=== PATIENT | male | born 1985 | race Two or more races ===

== ENCOUNTER 2024-08-06 16:37 | Emergency (ER) | payer MEDICAID ==
[~2024-08-06] VITALS: Ht 193 cm; Wt 120.0 kg
--- NOTE | 2024-08-06 17:30 | DVH ---
CHEST RADIOGRAPH Indication: CP Technique: Single frontal view of the chest was obtained Comparison: None FINDINGS: Lines and Tubes: Sternal wire sutures in place Lungs: Bilateral perihilar peribronchial thickening. Findings may represent bronchitis. Pleura: No effusion. No pneumothorax. Cardiomediastinal contours: Unremarkable Bones: No acute osseous abnormality. IMPRESSION: 1. Findings suggest bronchitis. HS:Y
[2024-08-06 17:56] LABS: Basophils # (auto) 0.1 10 ^3/uL (0-0.2); Eosinophils # (auto) 0.3 10 ^3/uL (0-0.8); Eosinophils % (auto) 4.1 % (0.0-7.0); Hematocrit 43.1 % (41.0-53.0); Hemoglobin 14.1 g/dL (13.5-17.5); Lymphocytes # (auto) 2.2 10 ^3/uL (0.4-5.4); Lymphocytes % (auto) 34.4 % (10.0-50.0); Mean Corpuscular Hemoglobin 29.2 pg (28.0-32.0); Mean Corpuscular Hgb Conc. 32.6 g/dL (32.0-36.0); Mean Corpuscular Volume 89.5 fL (80.0-100.0); Monocytes # (auto) 0.6 10 ^3/uL (0-1.3); Monocytes % (auto) 9.4 % (0.0-12.0); Neutrophils # (auto) 3.3 10 ^3/uL (1.6-8.6); Neutrophils % (auto) 51.1 % (37.0-80.0); Nucleated Red Blood Cells % 0.1 %; Platelet Count (auto) 165 10^3/uL (140-450); Red Blood Cells 4.82 10^6/uL (4.5-5.90); Red Cell Distribution Width 18.2 % (11.8-14.3); White Blood Cell 6.5 10^3/uL (4.4-10.8)
[2024-08-06 18:03] VITALS: BP 111/64
[2024-08-06 18:08] LABS: Sodium 143 mmol/L (136-145)
[2024-08-06 18:09] LABS: Anion Gap 9 (5-15); Carbon Dioxide 27 mmol/L (20-31)
[2024-08-06 18:10] LABS: Calcium 9.5 mg/dL (8.7-10.4)
[2024-08-06 18:14] LABS: Glucose 78 mg/dL (74-106)
[2024-08-06 18:15] VITALS: PULSE 53; RESP 16; O2SAT 94
[2024-08-06 18:15] LABS: BUN/Creatinine Ratio 18.3 (10.0-20.0)
[2024-08-06] MEDS: SODIUM CHLORIDE 0.9% 1,000 ML IVB ONE (18:18)
[2024-08-06] MEDS: ASPirin 81 mg TAB PO ONE (18:19)
[2024-08-06 18:20] LABS: Blood Urea Nitrogen 26 mg/dL (9-23)
[2024-08-06 18:21] LABS: Chloride 107 mmol/L (98-107)
--- NOTE | 2024-08-06 18:30 | ED.PDOC ---
HPI Comments 39-year-old male who comes in with chief complaint of dizziness and possible dehydration with chest pain and shortness for breath. The patient was started hiking at approximately 8:00 a.m. in the morning. At approximately 3:00 a.m. the patient became very dizzy and had some substernal chest pain. It was stabbing in nature and radiated to both arms. The patient then developed some shortness a breath. 911 was called in the helicopter came and picked up patient. There was no vomiting or nausea at that time. At the time the patient was blood pressure was within normal limits. The paramedics checked his blood sugar and was 103. Upon arrival, the patient was states that the chest pain is a 3/10. It still is nonradiating. Chief Complaint: Shortness of Breath Time Seen by MD: 16:41 Primary Care Provider: TAZ Reviewed Notes: Nurses Notes, Tomb Maker Helper Notes, Medications, Allergies (No allergies to medications) Allergies: Coded Allergies: NO KNOWN ALLERGIES (Unverified , 08/06/24) Information Source: Patient, Emergency Med Personnel Mode of Arrival: EMS Severity: Moderate Timing: Hours Duration: Since onset Prehospital treatment: 12 Lead EKG, Accucheck (103), [employer], IVF Location: Substernal Radiation: No Radiation Quality: Stabbing Onset: With Light Exertion Cardiac Risk Factors: None PE Risk Factors: None History of: Similar pain in past Modifying Factors: Exertion Associated Signs and Symptoms: SOB, Other (Dizziness) Constitutional: reports: weakness; denies: chills, diaphoresis, fatigue, fever, malaise, sweats, others EENTM: denies: blurred vision, double vision, ear bleeding, ear discharge, ear drainage, ear pain, ear ringing, eye pain, eye redness, hearing loss, mouth pain, mouth swelling, nasal discharge, nose bleeding, nose congestion, nose pain, photophobia, tearing, throat pain, throat swelling, voice changes, others Respiratory: reports: shortness of breath; denies: cough, hemoptysis, orthopnea, SOB at rest, SOB with excertion, stridor, wheezing, others Cardiovascular: reports: chest pain; denies: dizzy spells, diaphoresis, Dyspnea on exertion, edema, irregular heart beat, left arm pain, lightheadedness, palpitations, PND, syncope, others Gastrointestinal: denies: abdomen distended, abdominal pain, blood streaked bowels, constipated, diarrhea, dysphagia, difficulty swallowing, hematemesis, melena, nausea, poor appetite, poor fluid intake, rectal bleeding, rectal pain, vomiting, others Genitourinary: denies: burning, dysuria, flank pain, frequency, hematuria, inc ontinence, penile discharge, penile sore, pain, testicle pain, testicle swelling, urgency, others Neurological: reports: dizziness; denies: fainting, headache, left sided numbness, left sided weakness, numbness, paresthesia, pre-existing deficit, right sided numbness, right sided weakness, seizure, speech problems, tingling, tremors, weakness, others Musculoskeletal: denies: back pain, gout, joint pain, joint swelling, muscle pain, muscle stiffness, neck pain, others Integumetry: denies: bruises, change in color, change in hair/nails, dryness, laceration, lesions, lumps, rash, wounds, others Allergic/Immunocompromised: denies: Difficulty Healing, Frequent Infections, Hives, Itching, others Hematologic/Lymphatic: denies: anemia, blood clots, easy bleeding, easy bruising, swollen glands, others Endocrine: denies: excessive hunger, excessive sweating, excessive thirst, excessive urination, flushing, intolerance to cold, intolerance to heat, unexplained weight gain, unexplained weight loss, others Psychiatric: denies: anxiety, bipolar disorder, depression, hopeless, panic disorder, schizophrenia, sleepless, suicidal, others Physical Exam General Appearance: Moderate Distress, Obese HEENT: Normal ENT Inspection, Pharynx Normal, TMs Normal Neck: Full Range of Motion, Non-Tender, Normal, Normal Inspection Respiratory: Chest Non-Tender, Lungs Clear, No Accessory Muscle Use, No Respiratory Distress, Normal Breath Sounds Cardiovascular: No Edema, No JVD, No Murmur, No Gallop, Normal Peripheral Pulses, Regular Rate/Rhythm, Other (Pacemaker in check) Breast Exam: Deferred Gastrointestinal: No Organomegaly, Non Tender, No Pulsatile Mass, Normal Bowel Sounds, Soft Genitalia: Deferred Pelvic: Deferred Rectal: Deferred Extremities: No calf tenderness, Normal capillary refill, Normal inspection, Normal range of motion, Non-tender, No pedal edema Musculoskeletal : Apperance: Normal Neurologic: Alert, general helper II-XII nml as Tested, No Motor Deficits, Normal Affect, Normal Mood, No Sensory Deficits Cerebellar Function: Normal Reflexes: Normal Skin: Dry, Normal Color, Warm Lymphatic: No Adenopathy EKG EKG : Pulse Rate (adult): 50 Cardiac Rhythm: Paced Block: None ST: Nonsp Was a procedure done? Was a procedure done?: No CP Differential Dx Differential Diagnosis: Angina, IN, Pulmonary Embolus Differential Diagnosis: CHF Differential Diagnosis: Pericarditis X-Ray, Labs, Meds, VS Vital Signs Date Time Temp Pulse Resp B/P (MAP) Pulse Ox O2 Delivery O2 Flow Rate FiO2 08/06/24 16:51 50 08/06/24 16:37 98.7 50 18 118/88 (98) 95 Lab Test 08/06/24 17:31 Range/Units White Blood Count 6.5 4.4-10.8 10^3/uL Red Blood Count 4.82 4.5-5.90 10^6/uL Hemoglobin 14.1 13.5-17.5 g/dL Hematocrit 43.1 41.0-53.0 % Mean Corpuscular Volume 89.5 80.0-100.0 fL Mean Corpuscular Hemoglobin 29.2 28.0-32.0 pg Mean Corpuscular Hemoglobin Concent 32.6 32.0-36.0 g/dL Red Cell Distribution Width 18.2 H 11.8-14.3 % Platelet Count 165 140-450 10^3/uL Mean Platelet Volume 7.7 6.9-10.8 fL Neutrophils (%) (Auto) 51.1 37.0-80.0 % Lymphocytes (%) (Auto) 34.4 10.0-50.0 % Monocytes (%) (Auto) 9.4 0.0-12.0 % Eosinophils (%) (Auto) 4.1 0.0-7.0 % Basophils (%) (Auto) 1.0 0.0-2.0 % Neutrophils # (Auto) 3.3 1.6-8.6 10 ^3/uL Lymphocytes # (Auto) 2.2 0.4-5.4 10 ^3/uL Monocytes # (Auto) 0.6 0-1.3 10 ^3/uL Eosinophils # (Auto) 0.3 0-0.8 10 ^3/uL Basophils # (Auto) 0.1 0-0.2 10 ^3/uL Nucleated Red Blood Cells 0.1 % Sodium Level 143 136-145 mmol/L Potassium Level 4.0 3.5-5.1 mmol/L Chloride Level 107 98-107 mmol/L Carbon Dioxide Level 27 20-31 mmol/L Anion Gap 9 5-15 Blood Urea Nitrogen 26 H 9-23 mg/dL Creatinine 1.42 H 0.700-1.30 mg/dL Glomerular Filtration Rate Calc 64 >90 mL/min BUN/Creatinine Ratio 18.3 10.0-20.0 Serum Glucose 78 74-106 mg/dL Calcium Level 9.5 8.7-10.4 mg/dL Magnesium Level 2.0 1.6-2.6 mg/dL Troponin I High Sensitivity 11 </=54 ng/L B-Type Natriuretic Peptide 274.97 0-100 pg/mL Current Medications Medications (Trade) Dose Ordered Sig/Marco Route Start Time Stop Time Status Last Admin Aspirin 162 mg ONCE ONCE PO 08/06/24 16:45 08/06/24 16:46 DC 08/06/24 18:19 Sodium Chloride 1,000 ml @ 500 mls/hr Q2H ONCE IVB 08/06/24 16:45 08/06/24 18:44 08/06/24 18:18 IV Hep-Lock was established The patient was given aspirin 162 mg by mouth The patient was given normal saline as a bolus The patient's CBC and chemistry panel are within normal limits except for BUN of 26 and a creatinine of 1.42 The BNP is 274.97 The patient was being admitted to the hospitalist The patient understands and agrees with the management The chest x-ray shows: Suggestive of bronchitis A cardiology consult will be obtained. Images Reviewed?: Images reviewed and evaluated by me Time of 1ST Reevaluation: 18:33 Reevaluation 1ST: Unchanged Patient Education/Counseling: Diagnosis, Treatment, Prognosis Family Education/Counseling: No Family Present Departure 1 Departure Time of Disposition: 18:32 Impression: Primary Impression: Acute myocardial ischemia Additional Impressions: Dehydration Generalized weakness Disposition: ADMITTED INPATIENT Admit to: Tele Condition: Fair Critical Care Note Critical Care Time?: Yes (35 min-critical care time only) Stability Stability form required: Yes Unstable for transfer: Telemetry monitoring (Telemetry monitoring required), ED Physician Assesment (Clinical assesment) Heart Score Heart Score: Heart Score Response (Comments) Value History Moderate Suspicious 1 EKG Repolarization Disturb 1 Age <45 0 Risk Factors 1 or 2 risk factors 1 Troponin Normal limit 0 Total 3 AROLDO CARDOSO MD Aug 06, 2024 18:30
[2024-08-06 18:37] VITALS: PULSE 50
--- NOTE | 2024-08-07 12:24 | ECG ---
[facility] Test Date: 2024-08-06 Test Time: 16:51:52 Pat Name: MERRICK VILLEGAS Department: er Room: Gender: M Exchange Engineer: bucky : [id number] Requested By: AROLDO CARDOSO Order Number: [id number] Reading MD: Rm Giordano Measurements Intervals Reeves Rate: 50 P: 0 NE: 172 QRS: -14 QRSD: 205 T: 126 QT: 592 QTc: 540 Interpretive Statements Ventricular-paced complexes No further analysis attempted due to paced rhythm Electronically Signed On 08-09-2024 17:40:16 PST by Rm Giordano Please click the below link to view image of tracing.
== END 2024-08-06 19:19 | disposition left against medical advice (07) ==
LOC: EDBD 16:37 → ER 16:57
DX: I24.9 Acute ischemic heart disease, unspecified (principal); E86.0 Dehydration; R53.1 Weakness; E07.9 Disorder of thyroid, unspecified
CPT/HCPCS: 36415; 71045; 80048; 82947; 83735; 83880; 84484; 85025; 93005; 96360; 99291; J7030